=== PATIENT | female | born 1955 | race Caucasian/White ===

== ENCOUNTER 2018-04-14 07:26 | Emergency (ER) | payer MEDICAID, SELFPAY ==
[2018-04-14 07:31] VITALS: BP 182/98; PULSE 82; RESP 16; TEMP 36.5; O2SAT 100
[2018-04-14 08:15] VITALS: BP 175/95
--- NOTE | 2018-04-14 08:18 | W.ED.GENAD ---
Discharge Plan Disposition Patient Disposition: HOME Condition: Stable Discharge Details Chief Complaint: Epistaxis Clinical Impression: Epistaxis Primary Care Provider: None,None ED Provider: Minerva Blackburn Home Meds and New Rx's Prescriptions: No Action No Known Home Meds RF: 0 Discharge Instructions Instructions: Nosebleed (ED) Additional Instructions: If bleeding returns, hold pressure, use Afrin nasal spray [id number] as directed, or a nasal clamp. Keep a bowl of water near source of heat to help with moisture in the ear. You can also apply Vaseline inside the nares to help with moisture. You will receive a call from care management regarding a follow-up appointment with a primary care doctor for reevaluation as well as recheck of your blood pressure. Return immediately to the emergency department any worsening or new concerning symptoms. Discharge Data Discharge Physician: Minerva Blackburn Medical Decision Making 62-year-old female with bilateral epistaxis since 530 this morning resolved prior to coming to the ED. No complaints of headache, chest pain, shortness of breath or dizziness. Hypertensive on arrival, recheck 175/95. Remainder vitals within normal limits. Patient appears nontoxic. No source of bleeding noted on nares exam. Patient has not seen a primary care doctor for almost 30 years. Patient may have undiagnosed hypertension. In the setting of asymptomatic hypertension, will refer to care management to arrange a follow-up appointment with a primary care doctor for reevaluation of her blood pressure as it may be elevated due to anxiety related to epistaxis or ED visit. Discussed with patient to limit sodium intake which may be contributing to her high blood pressure. Patient instructed to hold pressure if bleeding returns. She was also instructed to apply vaseline within nares to help with dry heat, keep water near source of heat to help with moisture, and to use Afrin [id number] as directed. She was instructed to return here immediately if bleeding significantly worsens or persists. HPI General Mode of arrival: ambulatory. Date/Time Provider Initiated Documentation: 04/14/18 08:03. Limitations to Documentation: no limitations. Information obtained by: patient. HPI Narrative: Patient is a 62-year-old female who presents with nosebleed from bilateral nares that awoke her from sleep at 530 this morning. She states it resolved on the way to the ER. Patient states she held pressure while at home. Patient states they just recently started the pellet stove at home and she thinks the dry air may have caused it. She may have been picking her nose. She denies fever, headache, chest pain, shortness of breath, or dizziness. Past medical history: None Surgical history: None Social history: denies tobacco, alcohol or drugs Meds: None Allergies: NKDA PCP: None Related Data Home Medications Medication Instructions Recorded Confirmed Unknown [No Known Home Meds] 04/14/18 04/14/18 Allergies Allergy/AdvReac Type Severity Reaction Status Date / Time No Known Allergies Allergy Unverified 04/14/18 07:34 General Stated Complaint: Epistaxis CARMINA: 5 Review of Systems Review of Systems All systems reviewed & are unremarkable except as noted in HPI and below Constitutional Reports as per HPI, Denies chills and Denies fever(s) Eyes Denies blurry vision ENT Denies dizziness, Reports epistaxis, Denies sore throat and Denies throat swelling Cardiovascular Denies chest pain and Denies dyspnea Respiratory Denies dyspnea Gastrointestinal Denies abdominal pain, Denies diarrhea and Denies vomiting Genitourinary Denies hematuria and Denies dysuria Musculoskeletal Denies back pain and Denies numbness Integumentary/Breasts Denies lesions and Denies rash Neurologic Denies dizziness and Denies numbness Allergic/Immunologic Denies throat swelling PFS Social History Smoking/Tobacco Use Status: Never Exam Const General: cooperative and healthy appearing Orientation: alert and awake [facility] Head: normal to inspection Ears: hearing grossly normal bilaterally, external ears normal and TM's normal bilaterally General nose exam: other (Very minimal dried blood noted around left nares but no source of active bleeding. No source of active bleeding in right nares. ) Face and sinus: normal facial exam Mouth: oral mucosae normal and other (no bleeding noted) Teeth and gingiva: dentition normal Throat: posterior oropharynx normal (no bleeding noted) Eyes General: appearance normal, both eyes and all related structures Eyelids: eyelids normal Pupils: PERRL EOM: EOM intact bilaterally Neck Neck: normal visual inspection Lymphatic: no lymphadenopathy noted Chest Chest: normal inspection of the chest Resp Effort & Inspection: normal respiratory effort and able to speak in complete sentences Auscultation: clear to auscultation bilaterally Cardio Rate: regular rate Rhythm: regular rhythm GI Inspection: normal to inspection Palpation: soft, not firm, no guarding, no hepatosplenomegaly, no masses and nontender Auscultation: normal bowel sounds Skin General skin exam: no rashes or lesions noted Neuro General: alert and awake Cognition: normal cognition Speech: speech normal Gait: normal gait Extrem General: full ROM Psych Appearance: grossly normal Mental Status: mental status grossly normal Speech and Movement: speech and movement normal Affect: other (flat) Thought Process: normal Course Vital Signs Temperature 97.7 F 04/14/18 07:31 Pulse 82 04/14/18 07:31 Respiratory Rate 16 04/14/18 07:31 Blood Pressure 182/98 H 04/14/18 07:31 Pulse Oximetry 100 04/14/18 07:31 Temperature 97.7 F 04/14/18 07:31 Temperature Source Temporal Artery Scan 04/14/18 07:31 Pulse 82 04/14/18 07:31 Respiratory Rate 16 04/14/18 07:31 Respiratory Effort 04/14/18 07:34 Blood Pressure 175/95 H 04/14/18 08:15 Blood Pressure Position Sitting 04/14/18 07:31 Pulse Oximetry 100 04/14/18 07:31 Oxygen Delivery Method Room Air 04/14/18 07:31 Oxygen Flow Rate 0 04/14/18 07:31 Pain Level 0 04/14/18 07:31
--- NOTE | 2018-04-14 08:30 | ED.GENADUL_ITS ---
Discharge Plan Disposition Patient Disposition: HOME Condition: Stable Discharge Details Chief Complaint: Epistaxis Clinical Impression: Epistaxis Primary Care Provider: None,None ED Provider: Minerva Blackburn Home Meds and New Rx's Prescriptions: No Action No Known Home Meds RF: 0 Discharge Instructions Instructions: Nosebleed (ED) Additional Instructions: If bleeding returns, hold pressure, use Afrin nasal spray [id number] as directed, or a nasal clamp. Keep a bowl of water near source of heat to help with moisture in the ear. You can also apply Vaseline inside the nares to help with moisture. You will receive a call from care management regarding a follow-up appointment with a primary care doctor for reevaluation as well as recheck of your blood pressure. Return immediately to the emergency department any worsening or new concerning symptoms. Discharge Data Discharge Physician: Minerva Blackburn Medical Decision Making 62-year-old female with bilateral epistaxis since 530 this morning resolved prior to coming to the ED. No complaints of headache, chest pain, shortness of breath or dizziness. Hypertensive on arrival, recheck 175/95. Remainder vitals within normal limits. Patient appears nontoxic. No source of bleeding noted on nares exam. Patient has not seen a primary care doctor for almost 30 years. Patient may have undiagnosed hypertension. In the setting of asymptomatic hypertension, will refer to care management to arrange a follow-up appointment with a primary care doctor for reevaluation of her blood pressure as it may be elevated due to anxiety related to epistaxis or ED visit. Discussed with patient to limit sodium intake which may be contributing to her high blood pressure. Patient instructed to hold pressure if bleeding returns. She was also instructed to apply vaseline within nares to help with dry heat, keep water near source of heat to help with moisture, and to use Afrin [id number] as directed. She was instructed to return here immediately if bleeding significantly worsens or persists. HPI General Mode of arrival: ambulatory . Date/Time Provider Initiated Documentation: 04/14/18 08:03 . Limitations to Documentation: no limitations . Information obtained by: patient . HPI Narrative: Patient is a 62-year-old female who presents with nosebleed from bilateral nares that awoke her from sleep at 530 this morning. She states it resolved on the way to the ER. Patient states she held pressure while at home. Patient states they just recently started the pellet stove at home and she thinks the dry air may have caused it. She may have been picking her nose. She denies fever, headache, chest pain, shortness of breath, or dizziness. Past medical history: None Surgical history: None Social history: denies tobacco, alcohol or drugs Meds: None Allergies: NKDA PCP: None Related Data Home Medications Medication Instructions Recorded Confirmed Unknown [No Known Home Meds] 04/14/18 04/14/18 Allergies Allergy/AdvReac Type Severity Reaction Status Date / Time No Known Allergies Allergy Unverified 04/14/18 07:34 General Stated Complaint: Epistaxis CARMINA: 5 Review of Systems Review of Systems All systems reviewed & are unremarkable except as noted in HPI and below Constitutional Reports as per HPI, Denies chills and Denies fever(s) Eyes Denies blurry vision ENT Denies dizziness, Reports epistaxis, Denies sore throat and Denies throat swelling Cardiovascular Denies chest pain and Denies dyspnea Respiratory Denies dyspnea Gastrointestinal Denies abdominal pain, Denies diarrhea and Denies vomiting Genitourinary Denies hematuria and Denies dysuria Musculoskeletal Denies back pain and Denies numbness Integumentary/Breasts Denies lesions and Denies rash Neurologic Denies dizziness and Denies numbness Allergic/Immunologic Denies throat swelling PFS Social History Smoking/Tobacco Use Status: Never Exam Const General: cooperative and healthy appearing Orientation: alert and awake [facility] Head: normal to inspection Ears: hearing grossly normal bilaterally, external ears normal and TM's normal bilaterally General nose exam: other (Very minimal dried blood noted around left nares but no source of active bleeding. No source of active bleeding in right nares. ) Face and sinus: normal facial exam Mouth: oral mucosae normal and other (no bleeding noted) Teeth and gingiva: dentition normal Throat: posterior oropharynx normal (no bleeding noted) Eyes General: appearance normal, both eyes and all related structures Eyelids: eyelids normal Pupils: PERRL EOM: EOM intact bilaterally Neck Neck: normal visual inspection Lymphatic: no lymphadenopathy noted Chest Chest: normal inspection of the chest Resp Effort & Inspection: normal respiratory effort and able to speak in complete sentences Auscultation: clear to auscultation bilaterally Cardio Rate: regular rate Rhythm: regular rhythm GI Inspection: normal to inspection Palpation: soft, not firm, no guarding, no hepatosplenomegaly, no masses and nontender Auscultation: normal bowel sounds Skin General skin exam: no rashes or lesions noted Neuro General: alert and awake Cognition: normal cognition Speech: speech normal Gait: normal gait Extrem General: full ROM Psych Appearance: grossly normal Mental Status: mental status grossly normal Speech and Movement: speech and movement normal Affect: other (flat) Thought Process: normal Course Vital Signs Temperature 97.7 F 04/14/18 07:31 Pulse 82 04/14/18 07:31 Respiratory Rate 16 04/14/18 07:31 Blood Pressure 182/98 H 04/14/18 07:31 Pulse Oximetry 100 04/14/18 07:31 Temperature 97.7 F 04/14/18 07:31 Temperature Source Temporal Artery Scan 04/14/18 07:31 Pulse 82 04/14/18 07:31 Respiratory Rate 16 04/14/18 07:31 Respiratory Effort 04/14/18 07:34 Blood Pressure 175/95 H 04/14/18 08:15 Blood Pressure Position Sitting 04/14/18 07:31 Pulse Oximetry 100 04/14/18 07:31 Oxygen Delivery Method Room Air 04/14/18 07:31 Oxygen Flow Rate 0 04/14/18 07:31 Pain Level 0 04/14/18 07:31
== END 2018-04-14 08:40 | disposition home or self-care (01) ==
LOC: ER 08:49
PROVIDERS: Emergency Provider Physician Assistant
DX: R04.0 Epistaxis (principal); I10 Essential (primary) hypertension
CPT/HCPCS: 99282

== ENCOUNTER 2019-03-31 07:34 | Emergency (ER) | payer MEDICARE, SELFPAY ==
[2019-03-31] VITALS (48 sets, daily range): BP systolic 148–183; BP diastolic 70–107; PULSE 67–97; RESP 10–22; TEMP 36.3–37; O2SAT 94–100
--- NOTE | 2019-03-31 08:19 | DI.RAD_ITS ---
EXAM: XR CHEST 2V PA LATERAL INDICATION: dizzy. COMPARISON: No exams were available for comparison TECHNIQUE: 2D digital imaging was performed. FINDINGS: The heart size is within normal limits. There is tortuosity of the thoracic aorta. The lungs show no focal consolidating infiltrates. No effusions or pneumothoraces identified. No acute osseous abnormality is present. IMPRESSION: No acute pulmonary process.
--- NOTE | 2019-03-31 08:20 | ED.GENADUL_ITS ---
Discharge Plan Disposition Patient Disposition: HOME Discharge Details Chief Complaint: Dizzy/Sync Clinical Impression: HTN (hypertension), Dizziness Primary Care Provider: None,None ED Provider: Eros Layton Home Meds and New Rx's Prescriptions: New lisinopril 5 mg tablet 5 mg PO DAILY Qty: 30 RF: 0 Discharge Instructions Instructions: Hypertension (ED), Dizziness (ED) Additional Instructions: Please follow-up with your primary care physician. You should have a stress test performed within the next 72 hours. Please call your doctor to schedule this NERY. Please contact your primary care physician to arrange follow-up. Return to the ER for any worsening or new concerning symptoms. Medical Decision Making 8:40 --63-year-old female with history of untreated hypertension, here after waking this morning with diaphoresis, nausea, and lightheadedness. Patient is neurologically intact. She has no chest pain or shortness of breath. She saturating well in no respiratory distress. She is hypertensive. ECG was reviewed and interpreted by me: Sinus rhythm 80 bpm, normal axis, no STEMI, nondiagnostic. Concern for hypertensive crisis versus ACS versus other. Plan to obtain screening labs and chest x-ray. 10:40 --patient reassessed and is remained stable. Blood pressure improved. She notes she is feeling better. Initial labs reviewed and troponin negative. Plan to repeat troponin. 12:30 --delta troponin negative. Patient feeling much better. Ambulate without difficulty. Repeat ECG was performed and reviewed and interpreted by me: Sinus rhythm 67 bpm, left axis deviation, right bundle branch block present, nondiagnostic. No significant changes from prior EKG earlier today. Plan will be for outpatient follow-up. Patient should have a stress test annually performed in the next 72 hours. I encouraged her to call her primary care physician to arrange this. Given the patient has had persistent hypertension and is been hypertensive in the past and has not followed up as directed from prior ED visit, I will start antihypertensive lisinopril 5 mg daily and have her follow-up with her primary care physician to ensure tolerance and compliance. Disposition decision was made weighing the risks and benefits of hospitalization versus outpatient treatment, the risk for further decompensation, and the patient's wishes. The patient was stable and requested discharge. Prior to discharge, my usual and customary return precautions were reviewed with the patient - this included follow-up instructions and reason to return to the emergency department if condition worsens, does not improve as expected, or other new concerns arise. HPI General Mode of arrival: ambulatory . Date/Time Provider Initiated Documentation: 03/31/19 08:01 . Limitations to Documentation: no limitations . Information obtained by: patient . HPI Narrative: 63-year-old female with history of untreated hypertension, here with chief complaint of lightheadedness. Patient notes she woke up this morning diaphoretic, nauseous and with dizziness that she further described as lightheadedness when she stood up. She denies vertigo or room spinning dizziness. She denies syncope. Severe symptoms lasted approximately 15 minutes. She still does have some mild dizziness at this time. No associated chest pain. No shortness of breath. No abdominal pain. No numbness or weakness. No visual changes. No headache. No fever. Patient notes that yesterday before she went to bed she was feeling well. Related Data Home Medications Medication Instructions Recorded Confirmed lisinopril 5 mg PO DAILY #30 tab 03/31/19 Previous Rx's Medication Instructions Recorded lisinopril 5 mg PO DAILY #30 tab 03/31/19 Allergies Allergy/AdvReac Type Severity Reaction Status Date / Time No Known Allergies Allergy Unverified 03/31/19 08:33 General Stated Complaint: Dizzy/Sync CARMINA: 3 Review of Systems All systems reviewed & are unremarkable except as noted in HPI and below Constitutional Constitutional: Denies fever(s) Cardiovascular Cardiovascular: Denies chest pain PFSH Medical History HTN (hypertension) (Chronic) Social History Smoking/Tobacco Use Status: Never Drug use: Never Do you feel safe in your relationship?: Yes Exam Const General: cooperative and no acute distress HENMT Mouth: moist mucous membranes Eyes Conjunctivae: normal conjunctivae Sclera: normal sclerae EOM: EOM intact bilaterally Neck Neck: trachea midline and supple Resp Auscultation: clear to auscultation bilaterally, no rales, no rhonchi and no wheezes Cardio Jugular venous pressure: no JVD Rate: regular rate and not tachycardic Rhythm: regular rhythm GI Palpation: soft, not firm, no guarding, no masses, not rigid and nontender Skin General skin exam: no rashes or lesions noted Neuro General: alert, awake, oriented x3 and tone normal Cranial Nerves: CN's II-XI intact bilaterally Cognition: normal cognition Speech: speech normal Motor: muscle tone normal throughout and strength 5/5 throughout Extrem General: no edema Psych Appearance: grossly normal Mental Status: mental status grossly normal Course Vital Signs Vital signs: Vital Signs Temperature 36.3 C L 03/31/19 07:40 Pulse 82 03/31/19 07:40 Respiratory Rate 18 03/31/19 07:40 Blood Pressure 183/102 H 03/31/19 07:40 Pulse Oximetry 99 03/31/19 07:40 Temperature 36.3 C L 03/31/19 07:40 Temperature Source Temporal Artery Scan 03/31/19 07:40 Pulse 82 03/31/19 07:40 Respiratory Rate 18 03/31/19 08:08 Respiratory Effort Non-Labored 03/31/19 08:08 Respiratory Depth Normal 03/31/19 08:08 Respiratory Pattern Normal 03/31/19 08:08 Blood Pressure 183/102 H 03/31/19 07:40 Blood Pressure Position Sitting 03/31/19 07:40 Pulse Oximetry 99 03/31/19 07:40 Oxygen Delivery Method Room Air 03/31/19 07:40 Oxygen Flow Rate 0 03/31/19 07:40 Pain Level 8 03/31/19 07:40 Comment 03/31/19 07:40
[2019-03-31 08:31] LABS: Abs Immature Grans 0.01 k/cumm (0.0-0.09); Absolute Basophil Count 0.04 k/cumm (0.0-0.2); Absolute Eosinophil Count 0.18 k/cumm (0.0-0.7); Absolute Neutrophil Count 4.59 k/cumm (1.2-6.7); Basophils % 0.6; Eosinophils % 2.6; Immature Grans % 0.1; Lymphocytes % 24.9; Mean Corp. HGB Concentration 32.6 g/dL (32.0-36.0); Mean Corpuscular Hemoglobin 29.5 pg (27.0-33.0); Mean Corpuscular Volume 90.7 fL (80-95); Mean Platelet Volume 9.9 fL (8.0-11.0); Monocytes % 4.4; Neutrophils % 67.4; Platelet Count 237 x1000/uL (130-400); RBC 4.74 m/cumm (4.00-5.20); RBC Distribution Width 12.9 % (11.7-14.6); White Blood Cell Count 6.82 k/cumm (4.4-10.8)
[2019-03-31 08:46] LABS: ALT 22 U/L (14-59); AST 17 U/L (15-37); Albumin 3.8 g/dL (3.4-5.0); Alkaline Phosphatase 90 U/L (46-116); Anion Gap 9.5 mmol/L (3-11); BUN 16 mg/dL (7-18); Bilirubin, Total 0.5 mg/dL (0.2-1.0); CO2 27.5 mmol/L (21.0-32.0); CREATININE 1.07 mg/dL (0.55-1.02); Calcium 8.7 mg/dL (8.5-10.1); Chloride 104 mmol/L (98-107); Estimated GFR 51.47 (mL/min/1.73m2); Glucose 109 mg/dL (70-100); Magnesium 2.1 mg/dL (1.8-2.4); Potassium 3.8 mmol/L (3.5-5.1); Sodium 141 mmol/L (136-145); Total Protein 7.7 g/dL (6.4-8.2)
[2019-03-31 08:47] LABS: Troponin I < 0.05 ng/mL (0.00-0.06)
--- NOTE | 2019-03-31 09:00 | DI.VRAD_ITS ---
PROCEDURE INFORMATION: Exam: XR Chest, 2 Views Exam date and time: 03/31/2019 8:49 AM Clinical history: 63 years old, female; Shortness of breath TECHNIQUE: Imaging protocol: XR of the chest Views: 2 views. COMPARISON: No relevant prior studies available. FINDINGS: Lungs: Bibasilar atelectasis Pleural space: Unremarkable. No pleural effusion. No pneumothorax. Heart/Mediastinum: Unremarkable. No cardiomegaly. Vasculature: Tortuous aorta Bones/joints: Unremarkable. IMPRESSION: No acute process Dictated and Authenticated by: Naheed Conroy MD. Ordering:MILI Cooney MD
[2019-03-31 09:06] LABS: Bilirubin Negative (Negative); Blood Small (Negative); Clarity Clear (Clear); Glucose Negative (Negative); Ketones Negative (Negative); Leukocyte Esterase Negative (Negative); Nitrite Negative (Negative); Urobilinogen 0.2 EU/dL (Up TO 0.2)
[2019-03-31 09:19] LABS: Bacteria Negative HPF (Negative); C & S Indicated? No; Casts Negative LPF (Negative); Crystals Negative HPF (Negative); Epithelial Cells Few HPF (Negative); Mucus Negative (Negative); WBC 0-2 HPF (0-5)
[2019-03-31 11:10] LABS: Troponin I < 0.05 ng/mL (0.00-0.06)
[2019-03-31] MEDS: Lisinopril 10 MG TAB (12:36)
== END 2019-03-31 12:45 | disposition home or self-care (01) ==
PROVIDERS: Emergency Provider Student in an Organized Health Care Education/Training Program
DX: I10 Essential (primary) hypertension (principal); R42 Dizziness and giddiness; I45.10 Unspecified right bundle-branch block
CPT/HCPCS: 36415; 80053; 93005; 99285; 71046; 81003; 81015; 83735; 84484; 85025; 93010